=== PATIENT | male | born 1970 | race Caucasian/White ===

== ENCOUNTER 2020-06-15 10:22 | Emergency (ER) | payer OTHER, SELFPAY ==
--- NOTE | 2020-06-15 10:31 | ED.EAR ---
HPI - Ear Problem General Chief complaint: Ear Stated complaint: ear pain swelling Time Seen by Provider: 06/15/20 10:32 Source: patient and RN notes reviewed History of Present Illness HPI Narrative: Patient is a 50-year-old male who presents the urgent care with complaints of a left ear infection with increased pain and swelling. 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 Patient states that the pain has not subsided and he has been taking Tylenol and ibuprofen. Patient believes that the swelling has worsened. Patient reports of not given any prescription eardrops. Denies of any hearing loss. Denies of any known fever. No other acute complaints. No acute distress noted. Patient read the plan of care. Related Data Home Medications Medication Instructions Recorded Confirmed amoxicillin 875 mg PO Q12H 06/15/20 06/15/20 chlorpheniramine-phenylephrine [Ed 1 tablet PO Q4-6H PRN 06/15/20 06/15/20 A-Hist] hydrocodone-acetaminophen 1 tablet PO Q6H PRN 06/15/20 06/15/20 losartan-hydrochlorothiazide 1 tablet PO DAILY 06/15/20 06/15/20 pantoprazole 40 mg PO QAM 06/15/20 06/15/20 Allergies Allergy/AdvReac Type Severity Reaction Status Date / Time No Known Allergies Allergy Verified 06/15/20 10:46 Review of Systems Review of Systems: Narrative: CONSTITUTIONAL: Denies fever, chills, or sweats. EYES: Denies visual changes, redness, or discharge. ENT: Reports of left otalgia and swelling CARDIOVASCULAR: Denies chest pain, palpitations, or edema. RESPIRATORY: Denies cough or dyspnea. GASTROINTESTINAL: Denies abdominal pain, nausea, vomiting, or diarrhea. GENITOURINARY: Denies dysuria or hematuria. SKIN: Denies rash or itching. MUSCULOSKELETAL: Denies back pain, joint pain, or myalgia. NEUROLOGIC: Denies headache, numbness, or weakness. All other systems reviewed are negative, except as documented in HPI. PMFSH Comments At the time of my signature, I reviewed and agree with the nursing past medical, surgical, social, and family history. There is no relevant family history pertinent to the patient complaint. Exam Narrative: Exam Narrative: GENERAL: This is a well-nourished, well-developed patient, in no apparent distress. HEAD: normocephalic, atraumatic. EYES: PERRL. Sclera clear/white. Vision is grossly intact. EARS: Right external ear normal, moderate edema with erythema and scant yellow drainage noted to left auditory canal, difficulty visualizing left TM due to otitis externa, right auditory canal clear and without drainage, right TM normal without perforation. Hearing grossly intact. Mild to moderate edema to the external left ear extending to the left face NOSE: External nose normal with no obvious nasal discharge, nares without redness, no rhinorrhea. THROAT: Mucous membranes moist, posterior pharynx clear. NECK: Neck supple SKIN: warm, intact with no suspicious lesions or rash, good texture and turgor. NEURO: awake, alert, and oriented to person, place and time. There were no obvious focal neurologic abnormalities. EXTREMITIES: No clubbing, cyanosis, or edema. Course Vital Signs Vital signs: Vital Signs Temperature 98.3 F 06/15/20 10:35 Pulse Rate 94 06/15/20 10:35 Respiratory Rate 18 06/15/20 10:35 Blood Pressure 123/84 06/15/20 10:35 Pulse Oximetry 98 06/15/20 10:35 Temperature 98.3 F 06/15/20 10:35 Pulse Rate 94 06/15/20 10:35 Respiratory Rate 18 06/15/20 10:35 Blood Pressure 123/84 06/15/20 10:35 Pulse Oximetry 98 06/15/20 10:35 Reviewed Medical Decision Making MDM Narrative Medical decision making narrative: Advised the patient not to put anything in the ear with the exception of the prescription eardrops. Do not use Q-tips, peroxide, [id number] eardrops or water in the ear. May use ice or warm compress for comfort to the outside of the left ear. Complete steroi
[2020-06-15 10:35] VITALS: BP 123/84; PULSE 94; RESP 18; TEMP 36.8; O2SAT 98
== END 2020-06-15 10:55 | disposition home or self-care (01) ==
PROVIDERS: Emergency Provider Nurse Practitioner Family
DX: H60.92 Unspecified otitis externa, left ear (principal); H66.92 Otitis media, unspecified, left ear; I10 Essential (primary) hypertension; K21.9 Gastro-esophageal reflux disease without esophagitis
CPT/HCPCS: 99213; G0463